=== PATIENT | male | born 1980 | race Caucasian/White ===

== ENCOUNTER 2024-11-28 17:39 | Emergency (ER) | payer SELFPAY ==
--- NOTE | ~2024-11-28 | XR_ITS ---
CLINICAL HISTORY: ?constipation? 1 view abdomen Comparison: None provided Findings: No pneumoperitoneum or pneumatosis. Moderate colonic stool. No abnormal calcifications. No acute fractures. IMPRESSION: Normal bowel gas pattern This document has been electronically signed by: Reggie Clinton MD on 11/28/2024 19:18:31
[2024-11-28 17:55] VITALS: BP 148/108; PULSE 85; RESP 20; TEMP 36.8; O2SAT 95; BMI 28.3
--- NOTE | 2024-11-28 18:00 | ED_ITS ---
HPI - Nausea/Vomiting/Diarrhea General Chief complaint: General Medical Stated complaint: headaches/diarrhea Time Seen by Provider: 11/28/24 18:27 History of Present Illness ED Provider: Kush MEADE Narrative: The patient is a 44-year-old male who has been having abdominal discomfort and a sense of loose stools for about a week. He says that he has a history of constipation. He is on Suboxone. He has been on Suboxone for over a year. He has had no fever, sweats, chills. He feels that sometimes he thinks he is going to part and then a whole lot of liquid comes out. He finds this very disturbing. He therefore came to the emergency room. Related Data Previous Rx's ?Medication ?Instructions ?Recorded polyethylene glycol 3350 17 17 g PO DAILY #238 grams 0 11/28/24 gram/dose oral powder (Miralax) Allergies Allergy/AdvReac Type Severity Reaction Status Date / Time No Known Allergies Allergy Verified 11/28/24 18:04 Review of Systems 2 Review of Systems: Yes all other systems are reviewed and are negative Physical Exam 2 Vital Signs: Vital Signs: Last Vital Signs Temp 98.2 F 11/28/24 21:14 Pulse 86 11/28/24 21:14 Resp 16 11/28/24 21:14 BP 127/89 11/28/24 21:14 Pulse Ox 98 11/28/24 21:14 O2 Del Method Room Air 11/28/24 21:14 BMI result Body Mass Index 28.3 Const: Other: The patient is a healthy looking 44-year-old. He does not appear in acute distress. Orientation/consciousness: patient oriented x3 HEENT: Other: The face is symmetrical. ?Mucous membranes moist. Eyes: Other: Pupils are round equal, conjunctivae are clear, extraocular movements intact Neck: Neck: Yes normal visual inspection and Yes full ROM Resp: Effort & Inspection: normal respiratory effort Auscultation: clear to auscultation bilaterally Cardio: Rate: regular rate Rhythm: regular rhythm Heart sounds: S1 normal heart sound present and S2 normal heart sound present GI: Other: The abdomen may be slightly full. There is some mild diffuse tenderness without any real focal tenderness. No rebound or guarding. Digital rectal exam revealed an empty rectal vault. There was no impaction. There was no a stool for inspection or testing. Skin: Other: The skin is dry and unremarkable Neuro: General: patient oriented x3, tone normal, moves all extremities, no focal motor deficits and CN's II-XI intact bilaterally Extrem: Other: There is no calf swelling or tenderness. No asymmetry. No peripheral edema. Course Course Course Narrative: This is an RME: Additional HPI, ROS, PE not included below will be deferred to primary provider. RME assessment and note performed by: Maira Sharif PA-C This is a 21-[id number]-Surinamese speaking male, with a hx of opioid use disorder on suboxone, who presents to the ER with concerns of diarrhea x 6 days. Reports that he believes he has had rectal bleeding as well, describing it as a brown color, denies it being dark or red in color. Last episode of diarrhea was yesterday. Admits to having some pain in his abdomen. Also reports urinary frequency which is chronic for him. He states that he urinates every 5 minutes. Plan: Labs, UA, further ER evaluation needed. Medications Administered Discontinued Medications Generic Name Dose Route Start Last Admin Trade Name Hiren PRN Reason Stop Dose Admin Magnesium Citrate 300 ml 11/28/24 20:53 11/28/24 21:08 Magnesium Citrate 300 Ml Solution PO 11/28/24 20:54 300 ml ONCE ONE Administration Medical Decision Making Medical Decision Making [facility] Narrative: The patient is a 44-year-old male on Suboxone who presents with the complaints related to liquid stool as well as a sense of abdominal fullness. Based on his description of his symptoms I suspect the patient may have some kind of an overflow diarrhea syndrome. My suspicion for surgical abdomen is very low. The patient's abdomen seems benign. CBC shows a white count of 13.6, hemoglobin 15.3, platelet count 179, differential on white count is normal with 64.7% neutrophils and 26% lymphocytes. BMP, LFTs, and lipase are all normal. Urinalysis is normal. There are no ketones. Specific gravity is low. He nasal viral swab was negative for influenza, RSV, and COVID. Overall impression is that the patient is having overflow diarrhea secondary to constipation. I think his KUB is consistent with a significant amount of stool. The patient was offered an enema which she did not wish to receive. He will therefore be discharged with a bottle of magnesium citrate and a prescription for MiraLax to use daily for several weeks. The patient is encouraged to get a primary care doctor. Lab Data 11/28/24 18:14 11/28/24 18:14 Labs: Lab Results 11/28/24 11/28/24 Range/Units 18:14 19:30 WBC 13.6 H (4.8-10.8) X10*3/uL RBC 4.89 (4.60-5.80) X10*6/uL Hgb 15.3 (14.0-18.0) g/dl Hct 43.9 (42.0-52.0) % MCV 89.8 (80.0-98.0) fL MCH 31.3 (27.0-33.0) pg MCHC 34.9 (31.0-36.0) g/dl RDW 12.8 (11.0-16.0) % Plt Count 179 (160-400) X10*3/uL MPV 10.2 (9.4-12.4) fL Immature Gran % (Auto) 0.4 (0.0-0.4) % Neut % (Auto) 64.7 (45-73) % Lymph % (Auto) 26.0 (20-40) % [place] % (Auto) 6.7 (2-11) % Eos % (Auto) 1.5 (0-4) % Baso % (Auto) 0.7 (0-2) % Lymph # (Auto) 3.5 (1.2-4.9) X10*3/uL [place] # (Auto) 0.9 (0.1-1.2) X10*3/uL Eos # (Auto) 0.2 (0.0-0.4) X10*3/uL Baso # (Auto) 0.1 (0.0-0.2) X10*3/uL Abs Immat Gran (auto) 0.05 H (0.00-0.03) X10*3/uL Absolute Neuts (auto) 8.8 H (2.0-8.3) x10*3/uL Absolute Nucleated RBC 0.000 (0.0-0.012) X10*3/uL Nucleated RBC % (auto) 0.0 (0.0-0.2) /100WBC Sodium 141 (135-145) mmol/L Potassium 4.5 (3.3-5.1) mmol/L Chloride 106 (96-108) mmol/L Carbon Dioxide 28 (22-29) mmol/L Anion Gap 12 (12-20) BUN 9 (9-16) mg/dL Creatinine 0.83 (0.5-1.4) mg/dL Estim Creat Clear Calc 110.1 Estimated GFR > 60 Random Glucose 96 (60-115) mg/dL Calcium 9.1 (8.4-10.2) mg/dL Magnesium 2.1 (1.6-2.6) mg/dL Total Bilirubin 0.5 (0.0-1.0) mg/dL Direct Bilirubin 0.1 (0.0-0.5) mg/dL AST 28 (5-37) U/L ALT 24 (0-40) U/L Alkaline Phosphatase 61 (39-117) U/L Total Protein 7.1 (6.5-8.0) g/dL Albumin 4.5 (3.5-5.0) g/dL Lipase 14 (8-78) U/L Urine Color Yellow Urine Appearance Clear Urine pH 7.5 (5.0-9.0) Ur Specific [place] <= 1.005 (1.005-1.025) Urine Protein Negative (Neg-Trace) mg/dL Urine Glucose (UA) Negative (Negative) mg/dL Urine Ketones Negative (Negative) mg/dL Urine Blood Negative (Negative) Urine Nitrite Negative (Negative) Ur Leukocyte Esterase Negative (Negative) Influenza Type A (PCR) NEGATIVE (Negative) Influenza Type B (PCR) NEGATIVE (Negative) RSV RNA Qual (PCR) NEGATIVE (Negative) SARS-CoV-2 RNA (RT-PCR) NEGATIVE (Negative) Discharge Plan Discharge Clinical Impression: Constipation Patient Disposition: Home, Self-Care Instructions: Constipation (ED) Additional Instructions: I think that your symptoms are probably related to constipation which has probably been caused by Suboxone. Please drink the bottle of magnesium citrate provided when you get home. My hope is this will start to help ease your constipation. Additionally please start taking the MiraLax prescribed every day for at least a week. After things are better you might want to take MiraLax every other day to help prevent constipation in the future. Please work on getting a primary care doctor. Contact the offices provided to see if you can get a primary care doctor. Return to the emergency room if you feel significantly worse. Prescriptions: New polyethylene glycol 3350 [Miralax] 17 gram/dose powder 17 g PO DAILY Qty: 238 0RF Referrals: [facility] Primary Care, Angela [Provider Group, Internal Medicine] [facility] Primary Care, [facility] [Provider Group, Primary Care] Ambar Rai MD [Physician, Internal Medicine] Interventions: ED Discharge Assessment Last Done: 11/28/24 21:14 Discharge Date/Time: 11/28/24 21:15 Print Language: Surinamese
[2024-11-28 18:18] LABS: MANUAL DIFF FLAG NO
[2024-11-28 18:21] LABS: Hematocrit 43.9 % (42.0-52.0); Hemoglobin 15.3 g/dl (14.0-18.0); Imm Gran Abs Auto 0.05 X10*3/uL (0.00-0.03); Imm Gran Pct Auto 0.4 % (0.0-0.4); Lymphocytes Absolute Auto 3.5 X10*3/uL (1.2-4.9); Mean Corpuscular HGB Conc 34.9 g/dl (31.0-36.0); Mean Corpuscular Hemoglobin 31.3 pg (27.0-33.0); Mean Corpuscular Volume 89.8 fL (80.0-98.0); NRBC Abs Auto 0.000 X10*3/uL (0.0-0.012); NRBC Pct Auto 0.0 /100WBC (0.0-0.2); Platelet Count 179 X10*3/uL (160-400); Red Blood Count 4.89 X10*6/uL (4.60-5.80); White Blood Count 13.6 X10*3/uL (4.8-10.8)
[2024-11-28 18:28] VITALS: BP 128/97; PULSE 75; RESP 18; O2SAT 96
--- NOTE | 2024-11-28 18:36 | PC.NURSE ---
44 M presents to ED with lower abdominal pain 7/10 and diarrhea dark in color for 1 week, ? lower GI bleed. A+OX4, calm cooperative. RR even and unlabored, denies CP or SOB. C/o headache but sts he gets frequent headaches at baseline. Pt ambulates independently.
[2024-11-28 18:39] LABS: Alanine Aminotransferase 24 U/L (0-40); Albumin Level 4.5 g/dL (3.5-5.0); Alkaline Phosphatase 61 U/L (39-117); Anion Gap 12 (12-20); Aspartate Amino Transferase 28 U/L (5-37); Blood Urea Nitrogen 9 mg/dL (9-16); Calcium 9.1 mg/dL (8.4-10.2); Carbon Dioxide 28 mmol/L (22-29); Chloride 106 mmol/L (96-108); Creatinine Clr Calc Pharmacy 110.1; Estimated Glomerular Filt Rate > 60; Lipase 14 U/L (8-78); Magnesium 2.1 mg/dL (1.6-2.6); Potassium 4.5 mmol/L (3.3-5.1); Sodium 141 mmol/L (135-145); Total Protein 7.1 g/dL (6.5-8.0)
[2024-11-28 18:56] LABS: Resp Syncy Virus RNA Qual PCR NEGATIVE (Negative); SARS COV2 PCR INHOUSE NEGATIVE (Negative)
[2024-11-28 19:35] LABS: Appearance Urine Clear; Glucose Urine UA Negative (Negative); PH 7.5 (5.0-9.0); Specific Gravity - Urine <= 1.005 (1.005-1.025)
[2024-11-28 21:14] VITALS: BP 127/89; PULSE 86; RESP 16; TEMP 36.8; O2SAT 98
== END 2024-11-28 21:15 | disposition home or self-care (01) ==
PROVIDERS: Physician Assistant Medical; Emergency Provider Emergency Medicine
DX: K59.00 Constipation, unspecified (principal); F11.20 Opioid dependence, uncomplicated; Z03.818 Encounter for observation for suspected exposure to other biological agents ruled out
CPT/HCPCS: 74018; 80048; 80076; 81003; 83690; 83735; 85025; 87637; 99283; 99284

== ENCOUNTER → 2024-11-28 18:51 | Outpatient (BNV) | payer SELFPAY | PROVIDERS: Emergency Provider Emergency Medicine; Visit Provider Radiology Diagnostic Radiology | DX: K59.00 Constipation, unspecified (principal) | CPT/HCPCS: 74018 ==